=== PATIENT | female | born 1980 | race American Indian/Alaskan Native ===

== ENCOUNTER 2017-12-03 10:52 | Emergency (ER) | payer OTHER ==
[2017-12-03 10:57] VITALS: BMI 29.2
--- NOTE | 2017-12-03 11:48 | ED PDOC ---
HPI: Female Pain <Esther Padron - Last Filed: 12/03/17 13:10> Chief Complaint (Provider): Vaginal bleeding in History Per: Patient Additional Complaint(s): 37 yo female, , presents to ED with complaints of c/o waking up this am with slight pelvic cramping and vaginal spotting. pt underwent IVF cycle last month and had embryo transfer on 11/25. Pt went through cycle in [facility] and returned on 11/28. pt does not have fertility physician in [place]. <Celine Bermeo - Last Filed: 12/03/17 15:04> Time Seen by Provider: 12/03/17 10:54 Supervising Attending Note - Supervising Attending Note The Documented history was done by the: Physician Director Of Labor And Delivery The documented physical exam was done by the: Physician Director Of Labor And Delivery - Attestation: I have personally seen and examined this patient.: No I have fully participated in the care of the patient.: Yes I have reviewed all pertinent clinical information, including history, physical exam and plan: Yes <Esther Padron - Last Filed: 12/03/17 13:10> Past Medical History Vital Signs: Last Vital Signs Temp 98.3 F 12/03/17 10:55 Pulse 76 12/03/17 10:55 Resp 16 12/03/17 10:55 BP 125/67 12/03/17 10:55 Pulse Ox 97 12/03/17 11:48 <Esther Padron - Last Filed: 12/03/17 13:10> Reviewed: Nursing Documentation, Vital Signs Vital Signs: Last Vital Signs Temp 98.3 F 12/03/17 10:55 Pulse 76 12/03/17 10:55 Resp 16 12/03/17 10:55 BP 125/67 12/03/17 10:55 Pulse Ox 97 12/03/17 10:55 - Medical History PMH: No Chronic Diseases - Surgical History Surgical History: No Surg Hx - Family History Family History: States: No Known Family Hx - Living Arrangements Living Arrangements: With Family - Social History Current smoker - smoking cessation education provided: No Alcohol: None Drugs: Denies <Celine Bermeo - Last Filed: 12/03/17 15:04> - Home Medications Home Medications: Ambulatory Orders Medication Instructions Recorded Nitrofurantoin Macrocrystals 100 mg PO BID #10 cap 12/03/17 [Macrobid] - Allergies Allergies/Adverse Reactions: Allergies Allergy/AdvReac Type Severity Reaction Status Date / Time No Known Allergies Allergy Verified 12/03/17 11:34 Review of Systems ROS Statement: Except As Marked, All Systems Reviewed And Found Negative Gastrointestinal: Positive for: Abdominal Pain Genitourinary Female: Positive for: Vaginal Bleeding <Celine Bermeo - Last Filed: 12/03/17 15:04> Physical Exam - Reviewed Nursing Documentation Reviewed: Yes Vital Signs Reviewed: Yes - Physical Exam Appears: Positive for: Well, Non-toxic, No Acute Distress Head Exam: Positive for: ATRAUMATIC, NORMAL INSPECTION, NORMOCEPHALIC Skin: Positive for: Normal Color, Warm, DRY Eye Exam: Positive for: EOMI, Normal appearance, PERRL ENT: Positive for: Normal ENT Inspection Neck: Positive for: Normal, Painless ROM Cardiovascular/Chest: Positive for: Regular Rate, Rhythm Respiratory: Positive for: CNT, Normal Breath Sounds Gastrointestinal/Abdominal: Positive for: Normal Exam, Soft. Negative for: Tenderness, Distended, Guarding Back: Positive for: Normal Inspection Extremity: Positive for: Normal ROM Neurologic/Psych: Positive for: Alert, Oriented <Celine Bermeo - Last Filed: 12/03/17 15:04> - Laboratory Results Result Diagrams: 12/03/17 12:30 <Esther Padron - Last Filed: 12/03/17 13:10> - Laboratory Results Result Diagrams: 12/03/17 12:30 - ECG O2 Sat by Pulse Oximetry: 97 <Celine Bermeo - Last Filed: 12/03/17 15:04> Medical Decision Making Medical Decision Making: Diagnostics ordered Blood type B + Beta 7.59 UA (+) blood and 16 WBC Macrobid ordered US: No IUP visualized at this time. Findings represent early preg, ectopic not excluded. Pt made aware of all results. advised repeat visist in 2 days for repeat Beta. Return to ED if at anytime condition worsens. <AnderssalomezulemaCeline Rito - Last Filed: 12/03/17 15:04> Disposition <Esther Padron - Last Filed: 12/03/17 13:10> - Patient ED Disposition Is Patient to be Admitted: No - Disposition Disposition: Routine/Home Disposition Time: 14:52 <Celine Bermeo - Last Filed: 12/03/17 15:04> - Clinical Impression Clinical Impression: Threatened - Disposition Condition: STABLE Additional Instructions: Return to ED in 2 days for repeat Beta. Return sooner if at anytime condition worsens Prescriptions: Nitrofurantoin Macrocrystals [Macrobid] 100 mg PO BID #10 cap Instructions: Threatened Miscarriage Forms: [facility] ([place])
[2017-12-03 12:50] LABS: BASO # 0.1 K/uL (0.0-0.2); BASO % 0.8 % (0.0-2.0); EOS # 0.2 K/uL (0.0-0.7); EOS % 1.5 % (0.0-4.0); LYMPH # 4.1 K/uL (1.0-4.3); LYMPH % 31.7 % (20.0-40.0); MEAN CELL VOLUME 78.5 fl (81.0-99.0); MEAN CORPUSCULAR HEMOGLOBIN 25.1 pg (27.0-31.0); MEAN PLATELET VOLUME 9.4 fl (7.2-11.7); MONO # 0.8 K/uL (0.0-0.8); MONO % 6.1 % (0.0-10.0); NEUT # 7.8 K/uL (1.8-7.0); NEUT % 59.9 % (50.0-75.0); NRBC % 0.1 % (0.0-0.0); RBC 5.19 Mil/uL (3.80-5.20); RED CELL DISTRIBUTION WIDTH 14.4 % (11.5-14.5)
[2017-12-03 13:07] LABS: SQUAMOUS EPITHIAL 6 /hpf (0-5); URINE BACTERIA RARE (<OCC); URINE BILIRUBIN NEGATIVE (NEGATIVE); URINE BLOOD LARGE (NEGATIVE); URINE CLARITY CLOUDY (Clear); URINE COLOR YELLOW (YELLOW); URINE GLUCOSE (UA) NEG (Normal); URINE LEUKOCYTE ESTERASE TRACE Leu/uL (Negative); URINE PROTEIN NEGATIVE (NEGATIVE); URINE UROBILINOGEN 0.2-1.0 mg/dL (0.2-1.0)
--- NOTE | 2017-12-03 13:28 | US ---
Date of service: 12/03/2017 PROCEDURE: OB Pelvic Ultrasound HISTORY: early preg, bleeding and pain LMP: 11/03/2017 COMPARISON: None available. FINDINGS: UTERUS: Uterus measures 7.5 x 4.7 x 5.4 cm. Anteverted. Normal in size and appearance. No intrauterine gestation visualized. Anterior intramural fibroid measuring 1.3 x 1.2 x 1.3 cm. CERVIX: Measures 3.1 cm. Long and closed. No cervical abnormality seen. RIGHT OVARY: Measures 5.0 x 2.2 x 2.5 cm. 2.2 x 1.6 x 1.7 cm corpus luteum. Normal flow. LEFT OVARY: Measures 4.6 x 2.7 x 5.2 cm. Cyst measuring 3.7 x 2.1 x 3.0. Adnexal cyst measuring 1.8 x 1.3 x 1.3 cm. Normal flow. FREE FLUID: None. OTHER FINDINGS: None. IMPRESSION: No intrauterine gestation. Findings may represent early normal/abnormal with ectopic not excluded. Close clinical follow-up with serial pelvic sonography and serum beta HCG levels is recommended. Left ovarian and adnexal cysts.
[2017-12-03 15:00] VITALS: BP 132/68; PULSE 72; RESP 18; TEMP 98.5
[2017-12-03 15:04] VITALS: O2SAT 97
== END 2017-12-03 15:06 | disposition home or self-care (01) ==
LOC: H.ER 10:52
DX: O20.0 Threatened abortion (principal); Z3A.01 Less than 8 weeks gestation of pregnancy